=== PATIENT | female | born 1950 | race Two or more races ===

== ENCOUNTER 2024-04-05 06:00 | Day surgery (SDC) | payer OTHER ==
[2024-03-29 11:07] VITALS: BP 163/83
[~2024-04-05] VITALS: Ht 160 cm; Wt 69.4 kg
[~2024-04-05 06:00] MED LIST: COZAAR50 MG PO; LIPOFEN150 MG; SYNTHROID75 MCG; SYNTHROID88 MCG PO; TENORMIN50 M1 PO; VASOTEC5 MG
[2024-04-05] MEDS ORDERED: POVIDONE-IODINE 118 ML BOTT TOP ONE (12:00)
[2024-04-05] MEDS ORDERED: IBU600 MG PO (12:35)
== END 2024-04-05 17:25 | disposition home or self-care (01) ==
LOC: CIR.AMB 06:00
PROVIDERS: ATTEND Obstetrics & Gynecology Gynecology
DX: N95.0 Postmenopausal bleeding (principal); N88.2 Stricture and stenosis of cervix uteri; Z88.8 Allergy status to other drugs, medicaments and biological substances

== ENCOUNTER 2024-10-28 08:12 | Outpatient (CLI) | payer OTHER ==
[~2024-10-28 08:12] MED LIST changes: +IBU600 MG PO
== END 2024-10-28 08:24 | disposition home or self-care (01) ==
LOC: TOM 08:12
PROVIDERS: ATTEND Internal Medicine Cardiovascular Disease
DX: R10.9 Unspecified abdominal pain (principal); K40.90 Unilateral inguinal hernia, without obstruction or gangrene, not specified as recurrent; K42.9 Umbilical hernia without obstruction or gangrene
CPT/HCPCS: 74177; Q9965